=== PATIENT | female | born 1990 | race American Indian/Alaskan Native ===

== ENCOUNTER 2020-11-27 20:15 | Emergency (ER) | payer SELFPAY ==
[2020-11-27 20:58] VITALS: BP 112/81
--- NOTE | 2020-11-27 21:34 | Emergency Department Report ---
ED ENT HPI - General Chief complaint: Dental/Oral Stated complaint: TOOTHACHE Time Seen by Provider: 11/27/20 21:17 Source: patient Mode of arrival: Ambulatory Limitations: No Limitations - History of Present Illness Initial comments: pt is a 30 yo female who presents to the ED with c/o right lower dental pain that began 4 days ago. she denies any fever, n/v/d, difficulty swallowing, difficulty breathing, no facial edema. she last saw a dentist a year ago. PMHx none. no allergies to meds. LNMP 2 weeks ago. she states she has been taking OTC medications without much relief. - Related Data Previous Rx's Medication Instructions Recorded Last Taken Type Chlorhexidine Mouthwash [Peridex] 15 ml MM BID #1 bottle 11/27/20 Unknown Rx Naproxen [EC-Naproxen] 500 mg PO BID PRN #14 tablet. 11/27/20 Unknown Rx Allergies Allergy/AdvReac Type Severity Reaction Status Date / Time No Known Allergies Allergy Unverified 11/27/20 21:03 ED Dental HPI - General Chief complaint: Dental/Oral Stated complaint: TOOTHACHE Time Seen by Provider: 11/27/20 21:17 Source: patient Mode of arrival: Ambulatory Limitations: No Limitations - Related Data Previous Rx's Medication Instructions Recorded Last Taken Type Chlorhexidine Mouthwash [Peridex] 15 ml MM BID #1 bottle 11/27/20 Unknown Rx Naproxen [EC-Naproxen] 500 mg PO BID PRN #14 tablet. 11/27/20 Unknown Rx Allergies Allergy/AdvReac Type Severity Reaction Status Date / Time No Known Allergies Allergy Unverified 11/27/20 21:03 ED Review of Systems ROS: Stated complaint: TOOTHACHE Other details as noted in HPI Comment: All other systems reviewed and negative ED Past Medical Hx - Past Medical History Previous Medical History?: No - Surgical History Past Surgical History?: No - Social History Smoking Status: Never Smoker Substance Use Type: None - Medications Home Medications: Home Medications Medication Instructions Recorded Confirmed Last Taken Type Chlorhexidine Mouthwash [Peridex] 15 ml MM BID #1 bottle 11/27/20 Unknown Rx Naproxen [EC-Naproxen] 500 mg PO BID PRN #14 tablet. 11/27/20 Unknown Rx ED Physical Exam - General Limitations: No Limitations General appearance: alert, in no apparent distress - Head Head exam: Present: atraumatic, normocephalic - Eye Eye exam: Present: normal appearance - ENT ENT exam: Present: mucous membranes moist, other (there is a missing right lower back molar, there is erythema present of the gumline with mild induration, no signs of fluctuance, no facial edema, uvula is mildine, no uvular edema or deviation, no trismus, no tongue elevation, no muffled voice, no submanibdular edema) - Respiratory Respiratory exam: Present: normal lung sounds bilaterally. Absent: respiratory distress, wheezes, rales, rhonchi, stridor, chest wall tenderness, accessory muscle use, decreased breath sounds, prolonged expiratory - Cardiovascular Cardiovascular Exam: Present: regular rate, normal rhythm, normal heart sounds. Absent: systolic murmur, diastolic murmur, rubs, gallop - Neurological Exam Neurological exam: Present: alert, oriented X3 - Psychiatric Psychiatric exam: Present: normal affect, normal mood - Skin Skin exam: Present: warm, dry, intact ED Course Vital Signs 11/27/20 20:51 Temperature 99.3 F Pulse Rate 84 Respiratory 16 Rate Blood Pressure 112/81 O2 Sat by Pulse 100 Oximetry ED Medical Decision Making - Medical Decision Making pt is a 30 yo female who presents to the ED with c/o right lower dental pain that began 4 days ago. she denies any fever, n/v/d, difficulty swallowing, difficulty breathing, no facial edema. she last saw a dentist a year ago. PMHx none. no allergies to meds. LNMP 2 weeks ago. she states she has been taking OTC medications without much relief. vitals are normal. on exam:there is a missing right lower back molar, there is erythema present of the gumline with mild induration, no signs of fluctuance, no facial edema, uvula is mildine, no uvular edema or deviation, no trismus, no tongue elevation, no muffled voice, no subm anibdular edema. Examination appears consistent with gingivitis, no signs of necrosis, no signs of dental abscess or facial cellulitis. Patient given prescription for chlorhexidine mouthwash and naproxen. Discussed the importance of dental follow-up with patient. Advised patient Please use medication as prescribed. Gargle with warm salt water. May use Orajel [id number]. Please follow-up with a dentist. it is very important to follow-up. Return to emergency room for new or worsening symptoms. Critical care attestation.: If time is entered above; I have spent that time in minutes in the direct care of this critically ill patient, excluding procedure time. ED Disposition Clinical Impression: Gingivitis Disposition: DC- TO HOME OR SELFCARE Is pt being admited?: No Does the pt Need Aspirin: No Condition: Stable Additional Instructions: Please use medication as prescribed. Gargle with warm salt water. May use Orajel [id number]. Please follow-up with a dentist. it is very important to follow-up. Return to emergency room for new or worsening symptoms. Prescriptions: Naproxen [EC-Naproxen] 500 mg PO BID PRN #14 tablet.dr GALVEZ Reason: pain Chlorhexidine Mouthwash [Peridex] 15 ml MM BID #1 bottle Referrals: [facility] [Outside] - 3-5 Days [facility] [Outside] - 3-5 Days Time of Disposition: 21:33 Print Language: QATARI
== END 2020-11-27 21:40 | disposition home or self-care (01) ==
LOC: ED 20:15
DX: K05.10 Chronic gingivitis, plaque induced (principal); Z79.899 Other long term (current) drug therapy
CPT/HCPCS: 99282

== ENCOUNTER 2021-04-25 12:53 | Emergency (ER) | payer OTHER ==
[2021-04-25 13:19] VITALS: BP 109/72
--- NOTE | 2021-04-25 14:20 | XRay Report ---
CHEST 2 VIEWS INDICATION: palpitations. COMPARISON: None FINDINGS: Support devices: None. Heart: Within normal limits. Lungs/pleura: No acute air space or interstitial disease. No pneumothorax. Additional findings: None. IMPRESSION: Normal chest x-ray Signer Name: Yonatan Del Rosario Jr, MD Signed: 04/25/2021 2:15 PM Workstation Name: [id number]
--- NOTE | 2021-04-25 16:50 | Event Note ---
ED Screening Note ED Screening Note: went to plasma to donate but was unable to because of elevated pulse rate states she has been having palpitations with racing HR +mild SOB +CP during palpitation no cough no n/v/d no leg swelling recent traveled to [place] no sick contacts no hormone use PMHx none no allergies LNMP 04/12/21 +increased stress non smoker occ ETOH no drug use +caffeine use, 3 sodas a day This initial assessment/diagnostic orders/clinical plan/treatment(s) is/are subject to change based on patients health status, clinical progression and re- assessment by fellow clinical providers in the ED. Further treatment and workup at subsequent clinical providers discretion. Patient/guardian urged not to elope from the ED as their condition may be serious if not clinically assessed and managed. Initial orders include: labs, urine
[2021-04-25 17:42] LABS: Basophils % (Auto) 0.2 % (0.0-1.8); Eosinophils # (Auto) 0.1 K/mm3 (0.0-0.4); Eosinophils % (Auto) 0.6 % (0.0-4.3); Lymphocytes # (Auto) 2.3 K/mm3 (1.2-5.4); Lymphocytes % (Auto) 23.1 % (13.4-35.0); Mean Corpuscular HGB Conc 31 % (30-34); Mean Corpuscular Volume 78 fl (79-97); Monocytes # (Auto) 0.7 K/mm3 (0.0-0.8); Monocytes % (Auto) 7.1 % (0.0-7.3); Platelet Count 306 K/mm3 (140-440); Red Blood Count 5.22 M/mm3 (3.65-5.03); Red Cell Distribution Width 15.5 % (13.2-15.2)
[2021-04-25 17:48] LABS: Hematocrit 40.5 % (30.3-42.9); Hemoglobin 12.5 gm/dl (10.1-14.3)
[2021-04-25 18:02] LABS: Alanine Aminotransferase 12 units/L (7-56); Albumin 4.2 g/dL (3.9-5); Blood Urea Nitrogen 13 mg/dL (7-17); Calcium 9.2 mg/dL (8.4-10.2); Hemolysis Index 9
[2021-04-25 18:03] LABS: BUN/Creatinine Ratio 19
[2021-04-25 18:26] LABS: Bacteria,Urine 1+ /HPF (Negative); Bilirubin,Urine NEG (Negative); Blood,Urine NEG (Negative); Color,Urine Yellow (Yellow); Mucus,Urine 3+ /HPF; Protein,Urine <15 mg/dL mg/dL (Negative)
[2021-04-25 18:38] LABS: Amphetamine Screen,Urine Negative; Benzodiazepines Screen,Urine Negative; Cocaine Screen,Urine Negative; Methadone Screen,Urine Negative; Opiate Screen,Urine Negative
[2021-04-25 19:28] LABS: Cannabinoid Screen,Urine Negative
--- NOTE | 2021-04-25 21:22 | Cat Scan Report ---
CTA CHEST WITH CONTRAST INDICATION / CLINICAL INFORMATION: SOB, CP, elevated D-dimer. TECHNIQUE: Axial CT images were obtained through the chest after injection of 100 cc Omnipaque 300 IV contrast. 3 plane MIP and/or 3D reconstructions were produced. All CT scans at this location are per formed using CT dose reduction for [employer] by means of automated exposure control. COMPARISON: None available. FINDINGS: PULMONARY ARTERIES: No pulmonary emboli. THORACIC AORTA: No significant abnormality. HEART: No significant abnormality. CORONARY ARTERY CALCIFICATION: None. MEDIASTINUM / MILES: No significant abnormality. PLEURA: No pleural effusion. No pneumothorax. LUNGS: No acute air space or interstitial disease. ADDITIONAL FINDINGS: None. UPPER ABDOMEN: No acute findings. SKELETAL STRUCTURES: No significant osseous abnormality. IMPRESSION: 1. No CT evidence for pulmonary embolism. 2. No acute findings. Signer Name: Jose Anders MD Signed: 04/25/2021 9:18 PM Workstation Name: [id number]
--- NOTE | 2021-04-25 23:03 | Emergency Department Report ---
ED General Adult HPI - General Chief complaint: Arrhythmia/Palpitations Stated complaint: HIGH HEART RATE Time Seen by Provider: 04/25/21 16:46 Source: patient Mode of arrival: Ambulatory Limitations: No Limitations - History of Present Illness Initial comments: Patient is a 30-year-old -[place] female with no past medical history except anxiety presents to the ED with complaint of acute onset persistent intermittent elevated blood pressure and heart rate for the last 8 hours. Patient states that she had gone to donate plasma and just before venipuncture, her vital signs showed that her heart rate was elevated and that her blood pressure was also high. Patient states that the procedure was stopped and she was advised to come to the ED for evaluation because of tachycardia. Patient admits to heavy consumption of energy drinks daily and less water intake. Patient denies chest pain, dizziness, syncope, nausea and vomiting, diarrhea, dysuria, urinary frequency and urgency, cough, abdominal pain, headache, lightheadedness, fever and chills. MD Complaint: Elevated heart rate; anxious -: Sudden, days(s) (8) Location: chest Radiation: non-radiation Severity scale (0 -10): 0 Quality: dull, other Improves with: rest Worsens with: movement, other (Anxiety) Associated Symptoms: denies other symptoms. denies: confusion, chest pain, cough, diaphoresis, fever/chills, headaches, loss of appetite, malaise, nausea/v omiting, rash, shortness of breath, syncope, weakness Treatments Prior to Arrival: none - Related Data Previous Rx's Medication Instructions Recorded Last Taken Type Chlorhexidine Mouthwash [Peridex] 15 ml MM BID #1 bottle 11/27/20 Unknown Rx Naproxen [EC-Naproxen] 500 mg PO BID PRN #14 tablet. 11/27/20 Unknown Rx hydrOXYzine PAMOATE [Vistaril] 25 mg PO Q8HR PRN #30 capsule 04/25/21 Unknown Rx Allergies Allergy/AdvReac Type Severity Reaction Status Date / Time No Known Allergies Allergy Verified 04/25/21 13:17 ED Review of Systems ROS: Stated complaint: HIGH HEART RATE Other details as noted in HPI Constitutional: denies: chills, fever, malaise Eyes: denies: eye pain, eye discharge, vision change ENT: denies: ear pain, throat pain Respiratory: denies: cough, shortness of breath, wheezing Cardiovascular: palpitations, other (Elevated heart rate). denies: chest pain Endocrine: no symptoms reported Gastrointestinal: denies: abdominal pain, nausea, diarrhea Genitourinary: denies: urgency, dysuria, discharge Musculoskeletal: denies: back pain, joint swelling, arthralgia Skin: denies: rash, lesions Neurological: denies: headache, weakness, paresthesias Psychiatric: anxiety. denies: depression Hematological/Lymphatic: denies: easy bleeding, easy bruising ED Past Medical Hx - Past Medical History Previous Medical History?: No - Surgical History Past Surgical History?: No - Social History Smoking Status: Never Smoker Substance Use Type: None - Medications Home Medications: Home Medications Medication Instructions Recorded Confirmed Last Taken Type Chlorhexidine Mouthwash [Peridex] 15 ml MM BID #1 bottle 11/27/20 Unknown Rx Naproxen [EC-Naproxen] 500 mg PO BID PRN #14 tablet.dr 11/27/20 Unknown Rx hydrOXYzine PAMOATE [Vistaril] 25 mg PO Q8HR PRN #30 capsule 04/25/21 Unknown Rx ED Physical Exam - General Limitations: No Limitations General appearance: alert, in no apparent distress, anxious - Head Head exam: Present: atraumatic, normocephalic, normal inspection - Eye Eye exam: Present: normal appearance, PERRL, EOMI Pupils: Present: normal accommodation - ENT ENT exam: Present: normal exam, normal orophraynx, mucous membranes moist, TM's normal bilaterally, normal external ear exam - Neck Neck exam: Present: normal inspection, full ROM - Respiratory Respiratory exam: Present: normal lung sounds bilaterally. Absent: respiratory distress, wheezes, rales, stridor, chest wall tenderness, accessory muscle use, decreased breath sounds - Cardiovascular Cardiovascular Exam: Present: regular rate, normal rhythm, normal heart sounds. Absent: systolic murmur, diastolic murmur, rubs, gallop - GI/Abdominal GI/Abdominal exam: Present: soft, normal bowel sounds. Absent: tenderness, guarding, hyperactive bowel sounds, hypoactive bowel sounds, organomegaly - Extremities Exam Extremities exam: Present: normal inspection, full ROM, normal capillary refill - Back Exam Back exam: Present: normal inspection, full ROM. Absent: tenderness, CVA tenderness (R), CVA tenderness (L), muscle spasm, paraspinal tenderness - Neurological Exam Neurological exam: Present: alert, oriented X3, CN II-XII intact, normal gait, reflexes normal - Psychiatric Psychiatric exam: Present: normal affect, normal mood, anxious - Skin Skin exam: Present: warm, dry, intact, normal color. Absent: rash ED Course Vital Signs 04/25/21 13:18 Temperature 98.1 F Pulse Rate 100 H Respiratory 18 Rate Blood Pressure 109/72 O2 Sat by Pulse 100 Oximetry ED Medical Decision Making - Lab Data Result diagrams: 04/25/21 17:13 04/25/21 17:13 - Radiology Data Radiology results: report reviewed, image reviewed [facility] [address] [place] [address] XRay Report Signed Patient: YOMAIRA RICO MR#: [id number] : 1990 Acct:[id number] Age/Sex: 30 / F ADM Date: 04/25/21 Loc: ED Attending Dr: Ordering Physician: ED MD CARLY Date of Service: 04/25/21 Procedure(s): XR chest routine 2V Accession Number(s): [id number] cc: ED MD CARLY Fluoro Time In Minutes: CHEST 2 VIEWS INDICATION: palpitations. COMPARISON: None FINDINGS: Support devices: None. Heart: Within normal limits. Lungs/pleura: No acute air space or interstitial disease. No pneumothorax. Additional findings: None. IMPRESSION: Normal chest x-ray Signer Name: Yonatan Del Rosario Jr, MD Signed: 04/25/2021 2:15 PM Workstation Name: [id number] Transcribed By: TTR Dictated By: YONATAN DEL ROSRAIO JR, MD Electronically Authenticated By: YONATAN DEL ROSARIO JR, MD Signed Date/Time: 04/25/211414 DD/ 14 TD/TT: [facility] [address] [place] [address] Cat Scan Report Signed Patient: YOMAIRA RICO MR#: [id number] : 1990 Acct:[id number] Age/Sex: 30 / F ADM Date: 04/25/21 Loc: ED Attending Dr: Ordering Physician: CHRIS DON Date of Service: 04/25/21 Procedure(s): CT angio chest Accession Number(s): [id number] cc: CHRIS DON CTA CHEST WITH CONTRAST INDICATION / CLINICAL INFORMATION: SOB, CP, elevated D-dimer. TECHNIQUE: Axial CT images were obtained through the chest after injection of 100 cc Omnipaque 300 IV contrast. 3 plane MIP and/or 3D reconstructions were produced. All CT scans at this location are performed using CT dose reduction for [employer] by means of automated exposure control. COMPARISON: None available. FINDINGS: PULMONARY ARTERIES: No pulmonary emboli. THORACIC AORTA: No significant abnormality. HEART: No significant abnormality. CORONARY ARTERY CALCIFICATION: None. MEDIASTINUM / MILES: No significant abnormality. PLEURA: No pleural effusion. No pneumothorax. LUNGS: No acute air space or interstitial disease. ADDITIONAL FINDINGS: None. UPPER ABDOMEN: No acute findings. SKELETAL STRUCTURES: No significant osseous abnormality. IMPRESSION: 1. No CT evidence for pulmonary embolism. 2. No acute findings. Signer Name: Jose Anders MD Signed: 04/25/2021 9:18 PM Workstation Name: [id number] Transcribed By: DB Dictated By: JOSE ANDERS MD Electronically Authenticated By: JOSE ANDERS MD Signed Date/Time: 04/25/212117 DD/ 14 TD/TT: - Medical Decision Making This is a 30-year-old -[place] female with no past medical history except anxiety presents to the ED with complaint of acute onset persistent intermittent elevated blood pressure and heart rate for the last 8 hours. Patient states that she had gone to donate plasma and just before venipuncture, her vital signs showed that her heart rate was elevated and that her blood pressure was also high. Patient states that the procedure was stopped and she was advised to come to the ED for evaluation because of tachycardia. Patient admits to heavy consumption of energy drinks daily and less water intake. In the ED, patient is alert and oriented x3 and is not in any distress but anxious tachycardic in triage. EKG shows sinus tachycardia with a ventricular rate of 101 bpm with low voltage in precordial leads and left atrial enlargement, consider biatrial enlargement. Chest x-ray shows no acute cardiopulmonary abnormalities or pneumonitis. Lab test results were reviewed and are all nonactionable except for elevated D-dimer. CTA chest report showed no evidence of PE or any cardiopulmonary abnormalities. On reevaluation, patient's tachycardia resolved and patient is hemodynamically stable. Based on the patient's presentation and history, physical exam findings, lab test results and imaging report, patient symptoms are likely due to dehydration versus anxiety during venipuncture process. Patient heart score is zero. Other differential diagnoses were also considered including ACS, although this is unlikely given the patient's heart score level. PE has been ruled out with negative CTA chest. Patient was therefore discharged home and advised to increase her water intake and to eliminate high energy drinks. Patient was advised to follow-up with her primary care physician in 3 to 5 days for reevaluation. Patient was also advised return to the emergency department immediately if her symptoms get worse. - Differential Diagnosis anxiety; dehydration; pneumonia; viral syndrome; bronchitis; PE; ACS Critical care attestation.: If time is entered above; I have spent that time in minutes in the direct care of this critically ill patient, excluding procedure time. ED Disposition Clinical Impression: Anxiety as acute reaction to exceptional stress Disposition: 01 HOME / SELF CARE / HOMELESS Is pt being admited?: No Does the pt Need Aspirin: No Condition: Stable Instructions: Generalized Anxiety Disorder, Adult Additional Instructions: All lab test results were reviewed and are all nonactionable, except for D-dimer that was slightly elevated. Chest x-ray showed no acute cardiopulmonary abnormalities or pneumonitis. Chest CTA showed no evidence of pulmonary embolism. Therefore increase your water intake, take medication as needed for anxiety, and follow-up with your primary care physician in 5 to 7 days for reevaluation. Return to the ED immediately if symptoms get worse. Prescriptions: hydrOXYzine PAMOATE [Vistaril] 25 mg PO Q8HR PRN #30 capsule PRN Reason: Anxiety Referrals: [facility] [Provider Group] - 3-5 Days Time of Disposition: 23:14 Print Language: UZBEK
--- NOTE | 2021-04-26 09:43 | Electrocardiograph Report ---
[facility] Test Date: 2021-04-25 Test Time: 13:24:18 Pat Name: YOMAIRA RICO Department: Room: Gender: F [employer]: TEREZA : 1990 Requested By: ED DOC Order Number: [id number] Reading MD: Augustine Campos Measurements Intervals [place] Rate: 101 P: 75 WV: 151 QRS: 54 QRSD: 65 T: 14 QT: 319 QTc: 413 Interpretive Statements Sinus tachycardia NSST'S LAE, consider biatrial enlargement Low voltage, precordial leads No previous ECG available for comparison Electronically Signed On 04-26-2021 9:42:43 EDT by Augustine Campos
== END 2021-04-25 23:30 | disposition home or self-care (01) ==
LOC: ED 12:53
DX: F41.1 Generalized anxiety disorder (principal); F43.0 Acute stress reaction; Z79.899 Other long term (current) drug therapy
CPT/HCPCS: 36415; 71046; 71275; 80053; 80307; 81001; 82550; 83735; 84484; 85025; 85379; 93005; 99284; Q9967